=== PATIENT | male | born 1965 ===

== ENCOUNTER → 2019-07-16 07:43 | Outpatient (CLI) | payer OTHER, SELFPAY ==
--- NOTE | 2019-07-16 | DI.US.S_ITS ---
PROCEDURE: US ABDOMEN COMPLETE INDICATIONS: ELEVATED LFTS TECHNIQUE: Real-time scanning was performed of the abdominal and retroperitoneal organs, with image documentation. COMPARISON: None. FINDINGS: Liver: Liver is normal in size. The parenchyma is markedly hyperechoic and is difficult to penetrate with ultrasound. The margin is ill-defined. Evaluation of the parenchyma is limited. Gallbladder: The gallbladder is within normal limits. No stones or sludge. Normal wall thickness of 1.9 mm. No pericholecystic fluid or sonographic Santacruz's sign. Biliary ducts: Intrahepatic bile ducts are not well seen. Extrahepatic bile duct caliber measures 5.5 mm. Normal is 6-7 mm or less in diameter, or 10 mm or less post-cholecystectomy. Pancreas: The decrease is not seen due to lack of good acoustic window.. Spleen: Spleen is normal in size and homogeneous in echotexture. Kidneys: Kidneys are normal in size and echotexture. Right kidney measures 10.7 cm long; left kidney measures 11.2 cm long. There is a 3.1 cm shadowing calcification in the left renal pelvis causing mild left caliectasis. No solid masses. Right renal morphology is normal. Aorta: Visualized aorta is normal in caliber at less than 3 cm. Iliacs: Proximal common iliac arteries are normal in caliber at less than 2.5 cm. IVC: Intrahepatic inferior vena cava is patent. Miscellaneous: No free abdominal fluid. IMPRESSION: 1. Markedly hyperechoic hepatic parenchyma impossible to penetrate with ultrasound. This may indicate marked hepatic steatosis or other intrinsic liver disease such as early cirrhosis. 2. Nonvisualization of pancreas. 3. 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 Correlate clinically and consider further evaluation with a CT KUB. Dictated by: Edwige Islas M.D. on 07/16/2019 at 9:01 Approved by: Edwige Islas M.D. on 07/16/2019 at 9:06
[2019-07-16 09:52] LABS: Alanine Aminotransferase 69 IU/L (<50); Albumin Globulin Ratio 1.5 (1.0-2.8); Alkaline Phosphatase 44 U/L (38-126); Aspartate Aminotransferase 49 IU/L (17-59); BUN Creatinine Ratio 18.6 (6-22); Bilirubin Total 0.6 mg/dL (0.2-1.3); Blood Urea Nitrogen 16 mg/dL (9-20); Calcium 10.2 mg/dL (8.4-10.2); Carbon Dioxide 27 mmol/L (22-32); Chloride 103 mmol/L (98-107); Estimated Glomerular Filt Rate > 60.0 mL/min (>60); Globulin 3.4 g/dL (1.7-4.1); Glucose 100 mg/dL (70-100); HEMOLYSIS < 15 (0-50); Potassium 4.3 mmol/L (3.4-5.1); Sodium 139 mmol/L (137-145); Total Protein 8.4 g/dL (6.3-8.2)
[2019-07-16 10:53] LABS: Hep C Virus Ab w/Reflex Quant NEGATIVE s/c (NEGATIVE); Hepatitis B Surface Antigen POSITIVE s/c (NEGATIVE)
== END ==
PROVIDERS: Referring Provider Physician Assistant; Visit Provider Physician Assistant
DX: R79.89 Other specified abnormal findings of blood chemistry (principal); E27.49 Other adrenocortical insufficiency
CPT/HCPCS: 36415; 76700; 80053; 81256; 86803; 87340